=== PATIENT | female | born 1950 | race Caucasian/White ===

== ENCOUNTER 2018-02-24 11:00 | Emergency (ER) | payer MEDICARE ==
[~2018-02-24 11:00] MED LIST changes: -DOXY-179 PO; -GUAI-652 PO; -MECL12.5 PO; -TUMERIC
[2018-02-24] MEDS ORDERED: NS(*) 0.9% 1000 ML BAG 1,000 ML IV ONE (11:10)
--- NOTE | 2018-02-24 11:22 | ER Report ---
History and Physical Time Seen By MD: 11:22 Hx. of Stated Complaint: PT PRESENTS WITH HX OF JAW/ R ARM/SHOULDER PAIN AFTER A SHORT WALK. STATES HAS NOT FELT WELL ALL WEEK, WITH DIZZINESS AND WEAKNESS. HAS BEEN BACK AT THIS ALTITUDE FOR 1 WEEK. HPI/ROS 68-year-old female has had right-sided maxillary sinus pressure dizziness when she lowers her head to the ground today was driving had some dizziness began having left-sided jaw pain and right-sided arm pain which dissipated on its own Remainder of the 14 system rev: Yes Allergies: Coded Allergies: amoxicillin (Verified Allergy, Intermediate, RASH IN GENITAL AREA, 02/24/18 ) Home Meds Active Scripts Meclizine Hcl (MECLIZINE HCL) 12.5 Mg Tablet, 25 MG PO BID, #30 Prov:REYES FIERRO 02/24/18 Guaifenesin/Pseudoephedrne Hcl (MUCINEX D ER 600-60 MG TABLET) 1 Each Tab.er.12h , 1 EACH PO BID, #10 CAP Prov:REYES FIERRO 02/24/18 Doxycycline Hyclate (DOXYCYCLINE HYCLATE) 100 Mg Tablet, 100 MG PO BID, #14 Prov:REYES FIERRO 02/24/18 Reported Medications [Tumeric] No Conflict Check 02/24/18 Discontinued Reported Medications Triamcinolone Acet 0.5% (TRIAMCINOLONE ACETONIDE 0.5%) 15 Gm Cr, 15 GM TP, TUBE 04/28/17 Loratadine (CLARITIN) 10 Mg Tablet, 10 MG PO QDAY 04/28/17 Discontinued Scripts Doxycycline Hyclate (DOXYCYCLINE HYCLATE) 100 Mg Capsule, 100 MG PO BID for 7 Days, #14 CAPSULE Prov:REYES FIERRO 04/28/17 Prednisone (PREDNISONE) 20 Mg Tablet, 40 MG PO DAILY, #5 TAB Prov:REYES FIERRO 04/28/17 Hx Smoking: Yes (1/2PPD) Smoking Status: Current: Every Day Smoker Exposure to Second Hand Smoke?: No Hx Substance Use Disorder: Yes (POT) Hx Alcohol Use: No Family History of: HTN Constitutional Vital Sign - Last 24 Hours 02/24/18 02/24/18 02/24/18 02/24/18 11:02 11:02 11:02 11:15 Temp 98.2 Pulse 51 Resp 20 B/P (MAP) 133/82 (99) 134/77 (96) Pulse Ox 98 O2 Delivery Nasal Cannula O2 Flow Rate 2.0 02/24/18 02/24/18 02/24/18 02/24/18 11:30 11:42 11:45 11:47 Pulse 51 54 ??? B/P (MAP) 150/81 (104) 138/88 (105) 138/88 (105) Pulse Ox 98 02/24/18 02/24/18 02/24/18 02/24/18 11:50 11:55 12:15 12:17 Pulse 64 59 B/P (MAP) 147/85 (105) 146/102 (117) 142/73 (96) Pulse Ox 99 02/24/18 02/24/18 02/24/18 02/24/18 12:30 12:45 12:47 13:00 Pulse 52 Resp 9 B/P (MAP) 121/73 (89) 129/73 (91) 128/77 (94) Pulse Ox 99 02/24/18 02/24/18 02/24/18 02/24/18 13:15 13:17 13:30 13:45 Resp 22 B/P (MAP) 97/52 (67) 146/91 (109) 131/91 (104) Pulse Ox 94 02/24/18 02/24/18 02/24/18 02/24/18 13:50 13:55 14:00 14:05 Pulse 61 61 69 69 Resp 15 20 15 12 B/P (MAP) 135/77 (96) Pulse Ox 96 96 91 92 02/24/18 02/24/18 14:10 14:15 Pulse 74 70 Resp 23 12 B/P (MAP) 121/93 (102) Pulse Ox 94 95 Intake and Output 02/24/18 02/24/18 02/25/18 15:00 23:00 07:00 Intake Total 1200 ml Balance 1200 ml Physical Exam 68 YEAR OLD FEMALE ALERT NAD, RAGHU GCS 15 EOM INTACT, right-sided maxillary tenderness HRR LUNGS CTA ABD SOFT BS X 4, ANTONY, FULL PERIPHERAL PULSES Medical Decision Making Data Points Result Diagram: 02/24/18 1129 02/24/18 1129 Laboratory Hematology Test 02/24/18 11:29 02/24/18 11:49 02/24/18 13:40 Red Blood Count 3.80 M/uL (4.17-5.56) Mean Corpuscular Volume 94.2 fL (80.0-96.0) Mean Corpuscular Hemoglobin 32.5 pg (26.0-33.0) Mean Corpuscular Hemoglobin Concent 34.5 g/dL (32.0-36.0) Red Cell Distribution Width 17.3 % (11.5-14.5) Mean Platelet Volume 8.4 fL (7.2-11.1) Neutrophils (%) (Auto) 52.2 % (39.4-72.5) Lymphocytes (%) (Auto) 38.5 % (17.6-49.6) Monocytes (%) (Auto) 8.2 % (4.1-12.4) Eosinophils (%) (Auto) 0.9 % (0.4-6.7) Basophils (%) (Auto) 0.2 % (0.3-1.4) Nucleated RBC Relative Count (auto) 0.1 /100WBC Neutrophils # (Auto) 4.4 K/uL (2.0-7.4) Lymphocytes # (Auto) 3.2 K/uL (1.3-3.6) Monocytes # (Auto) 0.7 K/uL (0.3-1.0) Eosinophils # (Auto) 0.1 K/uL (0.0-0.5) Basophils # (Auto) 0.0 K/uL (0.0-0.1) Nucleated RBC Absolute Count (auto) 0.01 K/uL Peripheral Blood Smear Yes Y/N D-Dimer Quantitative (PE/DVT) 0.34 ug/ml (0-0.50) Sodium Level 138 mmol/L (137-145) Potassium Level 3.8 mmol/L (3.5-5.0) Chloride Level 105 mmol/L (98-107) Carbon Dioxide Level 22 mmol/L (22-31) Blood Urea Nitrogen 9 mg/dl (7-18) Creatinine 0.70 mg/dl (0.52-1.04) Glomerular Filtration Rate Calc > 60.0 Whole Blood Glucose 82 mg/DL (75-110) Random Glucose 75 mg/dl (75-110) Calcium Level 9.0 mg/dl (8.4-10.2) Magnesium Level 2.1 mg/dl (1.7-2.2) Total Bilirubin 0.9 mg/dl (0.2-1.3) Aspartate Amino Transf (AST/SGOT) 20 U/L (0-35) Alanine Aminotransferase (ALT/SGPT) 23 U/L (0-56) Alkaline Phosphatase 73 U/L (0-126) Total Protein 6.2 g/dl (6.3-8.2) Albumin 3.7 g/dl (3.5-5.0) Lipase 58 U/L (23-300) Urine Color Straw Urine Clarity Clear Urine pH 8.0 pH (4.8-9.5) Urine Specific [place] 1.002 Urine Protein Negative mg/dL (NEGATIVE) Urine Glucose (UA) Negative mg/dL (NEGATIVE) Urine Ketones Negative mg/dL (NEGATIVE) Urine Blood Negative (NEGATIVE) Urine Nitrite Negative (NEGATIVE) Urine Bilirubin Negative (NEGATIVE) Urine Urobilinogen Negative mg/dL (0.2-1.9) Urine Leukocyte Esterase Negative (NEGATIVE) Urine RBC <1 /HPF (0-2/HPF) Urine WBC <1 /HPF (0-5/HPF) Urine Squamous Epithelial Cells Many /LPF (</=FEW) Urine Bacteria Negative /HPF (NONE-FEW) Urine Mucus None /HPF (NONE-FEW) Troponin I < 0.012 ng/ml Chemistry Test 02/24/18 11:29 02/24/18 11:49 02/24/18 13:40 White Blood Count 8.4 k/uL (4.5-11.0) Red Blood Count 3.80 M/uL (4.17-5.56) Hemoglobin 12.3 g/dL (12.0-16.0) Hematocrit 35.8 % (34.0-47.0) Mean Corpuscular Volume 94.2 fL (80.0-96.0) Mean Corpuscular Hemoglobin 32.5 pg (26.0-33.0) Mean Corpuscular Hemoglobin Concent 34.5 g/dL (32.0-36.0) Red Cell Distribution Width 17.3 % (11.5-14.5) Platelet Count 313 K/uL (150-450) Mean Platelet Volume 8.4 fL (7.2-11.1) Neutrophils (%) (Auto) 52.2 % (39.4-72.5) Lymphocytes (%) (Auto) 38.5 % (17.6-49.6) Monocytes (%) (Auto) 8.2 % (4.1-12.4) Eosinophils (%) (Auto) 0.9 % (0.4-6.7) Basophils (%) (Auto) 0.2 % (0.3-1.4) Nucleated RBC Relative Count (auto) 0.1 /100WBC Neutrophils # (Auto) 4.4 K/uL (2.0-7.4) Lymphocytes # (Auto) 3.2 K/uL (1.3-3.6) Monocytes # (Auto) 0.7 K/uL (0.3-1.0) Eosinophils # (Auto) 0.1 K/uL (0.0-0.5) Basophils # (Auto) 0.0 K/uL (0.0-0.1) Nucleated RBC Absolute Count (auto) 0.01 K/uL Peripheral Blood Smear Yes Y/N D-Dimer Quantitative (PE/DVT) 0.34 ug/ml (0-0.50) Glomerular Filtration Rate Calc > 60.0 Whole Blood Glucose 82 mg/DL (75-110) Calcium Level 9.0 mg/dl (8.4-10.2) Magnesium Level 2.1 mg/dl (1.7-2.2) Total Bilirubin 0.9 mg/dl (0.2-1.3) Aspartate Amino Transf (AST/SGOT) 20 U/L (0-35) Alanine Aminotransferase (ALT/SGPT) 23 U/L (0-56) Alkaline Phosphatase 73 U/L (0-126) Total Protein 6.2 g/dl (6.3-8.2) Albumin 3.7 g/dl (3.5-5.0) Lipase 58 U/L (23-300) Urine Color Straw Urine Clarity Clear Urine pH 8.0 pH (4.8-9.5) Urine Specific [place] 1.002 Urine Protein Negative mg/dL (NEGATIVE) Urine Glucose (UA) Negative mg/dL (NEGATIVE) Urine Ketones Negative mg/dL (NEGATIVE) Urine Blood Negative (NEGATIVE) Urine Nitrite Negative (NEGATIVE) Urine Bilirubin Negative (NEGATIVE) Urine Urobilinogen Negative mg/dL (0.2-1.9) Urine Leukocyte Esterase Negative (NEGATIVE) Urine RBC <1 /HPF (0-2/HPF) Urine WBC <1 /HPF (0-5/HPF) Urine Squamous Epithelial Cells Many /LPF (</=FEW) Urine Bacteria Negative /HPF (NONE-FEW) Urine Mucus None /HPF (NONE-FEW) Troponin I < 0.012 ng/ml Coagulation Test 02/24/18 11:29 D-Dimer Quantitative (PE/DVT) 0.34 ug/ml Urinalysis Test 02/24/18 11:49 Urine Color Straw Urine Clarity Clear Urine pH 8.0 pH (4.8-9.5) Urine Specific [place] 1.002 Urine Protein Negative mg/dL (NEGATIVE) Urine Glucose (UA) Negative mg/dL (NEGATIVE) Urine Ketones Negative mg/dL (NEGATIVE) Urine Blood Negative (NEGATIVE) Urine Nitrite Negative (NEGATIVE) Urine Bilirubin Negative (NEGATIVE) Urine Urobilinogen Negative mg/dL (0.2-1.9) Urine Leukocyte Esterase Negative (NEGATIVE) Urine RBC <1 /HPF (0-2/HPF) Urine WBC <1 /HPF (0-5/HPF) Urine Squamous Epithelial Cells Many /LPF (</=FEW) Urine Bacteria Negative /HPF (NONE-FEW) Urine Mucus None /HPF (NONE-FEW) EKG/Imaging EKG Interpretation EKG at 1121 sinus bradycardia ventricular rate 53 QTc is 441 2nd EKGs 1329 sinus rhythm with PACs ventricular rate 60 QTc is 438 Monitor Interpretation: Normal Sinus Rhythm Imaging FACILITY: [facility] [place] PATIENT NAME: Birdie Sweeney : 1950 MR: [id number] V: [id number] EXAM DATE: ORDERING PHYSICIAN: REYES FIERRO TECHNOLOGIST: Location: [facility] - [place] Patient: Birdie Sweeney : 1950 Visit/Account:[id number] Date of Sevice: 02/24/2018 CT OF THE BRAIN WITHOUT CONTRAST HISTORY: Dizziness PROCEDURE: 3.0 mm contiguous axial sections were performed through the brain. Sagittal and coronal reformats were submitted. COMPARISON: None FINDINGS: BRAIN: Brain and intracranial structures: There is no mass lesion, hemorrhage or acute infarct. Orbits (included portions): Normal. Scalp: Normal. Skull: No acute abnormality. Minimal left septal deviation. Paranasal sinuses and mastoid air cells (included portions): Small volume secretions in the right maxillary sinus. IMPRESSION: No evidence of acute intracranial abnormality by CT. One of the following dose optimization techniques was utilized in the performance of this exam: Automated exposure control; adjustment of the mA and/ or kV according to the patient's size; or use of an iterative reconstruction technique. Specific details can be referenced in the facility's radiology CT exam operational policy. Report Dictated By: Onel Stark MD at 02/24/2018 12:26 PM Report E-Signed By: Onel Stark MD at 02/24/2018 12:29 PM WSN:[id number]: [facility] [place] PATIENT NAME: Birdie Sweeney : 1950 MR: [id number] V: [id number] EXAM DATE: [id number] ORDERING PHYSICIAN: REYES FIERRO TECHNOLOGIST: Location: [facility] - [place] Patient: Birdie Sweeney : 1950 Visit/Account:[id number] Date of Sevice: 02/24/2018 Exam type: CHEST SINGLE AP History: dizziness, cp Comparison: None. Findings: The lungs are free of acute effusions, infiltrates or edema. The cardiac silhouette is normal in size. The trachea is midline. There is no evidence of a pneumothorax or pneumomediastinum. There Is a gentle dextroconvex scoliosis of the thoracic spine IMPRESSION: 1. No acute cardiac pulmonary process is seen Report Dictated By: Blanche Joseph MD at 02/24/2018 11:33 AM Report E-Signed By: Blanche Joseph MD at 02/24/2018 11:34 AM WSN:[id number] ED Course/Re-evaluation ED Course CT SHOWS SMALL AMOUNT OF FLUID RIGHT SINUS WILL TREAT SINUSITIS DIZZINESS RELIEVED W MUCINEX D AND MECLIZINE, CARDIAC HOGAN NEG W 2 HOUR TROP NEG, WILL SEND TO PCPFOR FURTHER EVAL AND TREATMENT FOR CP Re-evaluation ASYMPTOMATIC ON DISMISSAL DX SINUSITIS, ATYPICAL CP Decision to Disposition Date: Feb 24, 2018 Decision to Disposition Time: 14:00 Depart Departure Latest Vital Signs Vital Signs Date Time Temp Pulse Resp B/P (MAP) Pulse Ox O2 Delivery O2 Flow Rate FiO2 02/24/18 14:15 70 12 121/93 (102) 95 02/24/18 11:02 2.0 02/24/18 11:02 98.2 Nasal Cannula Impression: Primary Impression: Sinusitis Additional Impression: Atypical chest pain Condition: Improved Disposition: HOME OR SELF-CARE Referrals: [facility] 2 Days New Scripts Meclizine Hcl (MECLIZINE HCL) 12.5 Mg Tablet 25 MG PO BID, #30 Prov: REYES FIERRO 02/24/18 Guaifenesin/Pseudoephedrne Hcl (MUCINEX D ER 600-60 MG TABLET) 1 Each Tab.er.12h 1 EACH PO BID, #10 CAP Prov: REYES FIERRO 02/24/18 Doxycycline Hyclate (DOXYCYCLINE HYCLATE) 100 Mg Tablet 100 MG PO BID, #14 Prov: REYES FIERRO 02/24/18 Patient Instructions: Chest Pain (ED), Sinusitis (ED) Additional Instructions: you heart testing was negative today . see your doctor to schedule a stress test. . return for recurrence of symptoms Problem Qualifiers REYES FIERRO Feb 24, 2018 11:22
[2018-02-24] MEDS ORDERED: TUMERIC (11:27)
--- NOTE | 2018-02-24 11:39 | RADIOLOGY IMAGING REPORT ---
FACILITY: [facility] PATIENT NAME: Birdie Sweeney : 1950 MR: [id number] V: [id number] EXAM DATE: ORDERING PHYSICIAN: REYES FIERRO TECHNOLOGIST: Location: [facility] - [place] Patient: Birdie Sweeney : 1950 Visit/Account:[id number] Date of Sevice: 02/24/2018 Exam type: CHEST SINGLE AP History: dizziness, cp Comparison: None. Findings: The lungs are free of acute effusions, infiltrates or edema. The cardiac silhouette is normal in siz e. The trachea is midline. There is no evidence of a pneumothorax or pneumomediastinum. There Is a gentle dextroconvex scoliosis of the thoracic spine IMPRESSION: 1. No acute cardiac pulmonary process is seen Report Dictated By: Blanche Joseph MD at 02/24/2018 11:33 AM Report E-Signed By: Blanche Joseph MD at 02/24/2018 11:34 AM WSN:[id number]
[2018-02-24] MEDS ORDERED: EMS NS 0.9%(*) 1000 ML BAG 1,000 ML IV ONE (11:40)
[2018-02-24 11:57] LABS: PLATELET COUNT, AUTOMATED 313 K/uL (150-450)
[2018-02-24] MEDS ORDERED: MECLIZINE HCL 25 MG TAB PO ONE (12:00)
--- NOTE | 2018-02-24 12:30 | EKG ---
FACILITY: [facility] PATIENT NAME: BRETT GOMEZ : [id number] MR: [id number] V: [id number] EXAM DATE: ORDERING PHYSICIAN: REYES FIERRO TECHNOLOGIST: CARLOS Luong Reason : Blood Pressure : / mmHG Vent. Rate : 053 BPM Atrial Rate : 053 BPM P-R Int : 126 ms QRS Dur : 078 ms QT Int : 470 ms P-R-T Axes : 057 058 068 degrees QTc Int : 441 ms Sinus bradycardia Possible left atrial enlargement No previous ECGs available Confirmed by DAHLIA SIM ([id number]) on 02/24/2018 2:28:04 PM Referred By: DARIEL Confirmed By:DAHLIA SIM
--- NOTE | 2018-02-24 12:35 | RADIOLOGY IMAGING REPORT ---
FACILITY[place] [facility] [place] PATIENT NAME: Birdie Sweeney : 1950 MR: [id number] V: [id number] EXAM DATE: ORDERING PHYSICIAN: REYES FIERRO TECHNOLOGIST: Location: [facility] - [place], [place] Patient: Birdie Sweeney : 1950 Visit/Account:[id number] Date of Sevice: 02/24/2018 CT OF THE BRAIN WITHOUT CONTRAST HISTORY: Dizziness PROCEDURE: 3.0 mm contiguous axial sections were performed through the brain. Sagittal and coronal r eformats were submitted. COMPARISON: None FINDINGS: BRAIN: Brain and intracranial structures: There is no mass lesion, hemorrhage or acute infarct. Orbits (included portions): Normal. Scalp: Normal. Skull: No acute abnormality. Minimal left septal deviation. Paranasal sinuses and mastoid air cells (included portions): Small volume secretions in the right max illary sinus. IMPRESSION: No evidence of acute intracranial abnormality by CT. One of the following dose optimization techniques was utilized in the performance of this exam: Autom ated exposure control; adjustment of the mA and/or kV according to the patient's size; or use of an i terative reconstruction technique. Specific details can be referenced in the facility's radiology C T exam operational policy. Report Dictated By: Onel Stark MD at 02/24/2018 12:26 PM Report E-Signed By: Onel Stark MD at 02/24/2018 12:29 PM WSN:[id number]
[2018-02-24] MEDS ORDERED: guaiFENesin/P-EPHED 1 EA TABCR PO ONE (12:50)
[2018-02-24] MEDS ORDERED: DOXYCYCLINE HYCL 100 MG TAB PO ONE (12:50)
[2018-02-24] MEDS ORDERED: DOXY-179 PO (12:55)
[2018-02-24] MEDS ORDERED: GUAI-652 PO (12:55)
--- NOTE | 2018-02-24 13:37 | EKG ---
FACILITY: [facility] PATIENT NAME: BRETT GOMEZ : [id number] MR: [id number] V: [id number] EXAM DATE: ORDERING PHYSICIAN: REYES FIERRO TECHNOLOGIST: CARLOS Luong Reason : Blood Pressure : / mmHG Vent. Rate : 060 BPM Atrial Rate : 060 BPM P-R Int : 138 ms QRS Dur : 080 ms QT Int : 438 ms P-R-T Axes : 055 021 065 degrees QTc Int : 438 ms Sinus rhythm with premature atrial complexes Unusual R wave progression through anterior leads - question lead reversal Abnormal ECG When compared with ECG of 24-FEB-2018 11:21, premature atrial complexes are now present Confirmed by DAHLIA SIM ([id number] on 02/24/2018 2:29:28 PM Referred By: Confirmed By:DAHLIA SIM
[2018-02-24 14:15] VITALS: BP 121/93
[2018-02-24] MEDS ORDERED: MECL12.5 PO (14:24)
== END 2018-02-24 14:30 | disposition home or self-care (01) ==
LOC: ER 11:09
DX: J32.9 Chronic sinusitis, unspecified (principal); R07.89 Other chest pain; R53.1 Weakness
CPT/HCPCS: 36415; 36416; 70450; 71045; 81001; 82948; 83690; 83735; 84484; 85025; 85379; 93005; 96360; 96361; 99284; A9270; J7030; J8597; 82040; 82247; 82310; 82374; 82435; 82565; 82947; 84075; 84132; 84155; 84295; 84450; 84460; 84520

== ENCOUNTER → 2018-02-24 | Outpatient (CLI) | payer MEDICARE ==
[~2018-02-24] MED LIST: ACET-1966 PO; CEPH-13 PO; DOXY-179 PO; DOXY-181 PO; GUAI-652 PO; HYDR25CA83 PO; LORA-802 PO; MECL12.5 PO; NAPR220C12 PO; PRED20TA6 PO; TRAM-420 PO; TRI05T TP; TUMERIC
== END ==
LOC: AMB 09:47
PROVIDERS: ATTEND Nurse Practitioner
DX: R68.84 Jaw pain (principal); M79.601 Pain in right arm; R42 Dizziness and giddiness; R09.02 Hypoxemia
CPT/HCPCS: A0425; A0427